=== PATIENT | male | born 1975 | race Caucasian/White ===

== ENCOUNTER 2023-01-06 14:21 | Emergency (ER) | payer OTHER ==
[~2023-01-06] VITALS: Ht 177.8 cm; Wt 90.7 kg
--- NOTE | 2023-01-06 14:42 | NUR ---
DENIS ALS TO ER BED 5
[2023-01-06 14:47] VITALS: BP 150/95
--- NOTE | 2023-01-06 14:48 | NUR ---
COVID swabs obtained, walked to lab.
[2023-01-06] MEDS ORDERED: LORazepam 1 MG TAB PO ONE (15:05)
[2023-01-06] MEDS ORDERED: NICOTINE TRANSD SYS 14 MG/24 HR PATCH TD SCH (15:05)
[2023-01-06] MEDS ORDERED: LORazepam 1 MG TAB ONE (15:06)
[2023-01-06] MEDS ORDERED: NICOTINE TRANSD SYS 14 MG/24 HR PATCH TD ONE (15:07)
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
--- NOTE | 2023-01-06 15:07 | NUR ---
Dr. Moore evaluating patient at bedside.
[2023-01-06] MEDS ORDERED: HALOPERIDOL IM 5 MG/ML VIAL IM ONE (15:15)
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
--- NOTE | 2023-01-06 15:57 | NUR ---
SISTER MAXX PUENTES [phone]
[2023-01-06 16:22] LABS: BASOPHILS % (AUTO) 0.3 % (0.0-2.0); EOSINOPHILS # (AUTO) 0.2 K/uL (0-0.4); EOSINOPHILS % (AUTO) 2.2 % (0.0-4.0); HEMATOCRIT 41.5 % (36-52); HEMOGLOBIN 14.6 g/dL (12.0-18.0); LYMPHOCYTES # (AUTO) 2.2 K/uL (2.0-11.5); LYMPHOCYTES % (AUTO) 30.3 % (20.5-51.1); MEAN CORPUSCULAR HEMOGLOBIN 32 pg (27-31); MEAN CORPUSCULAR HGB CONC 35 g/dL (33-37); MEAN CORPUSCULAR VOLUME 90.8 fL (80-94); MONOCYTES # (AUTO) 0.5 K/uL (0.8-1.0); MONOCYTES % (AUTO) 6.5 % (1.7-9.3); NEUTROPHILS # (AUTO) 4.5 K/uL (1.8-7.7); NEUTROPHILS % (AUTO) 60.7 % (42.2-75.2); PLATELET COUNT (AUTO) 223 K/uL (140-450); RED BLOOD CELL COUNT(AUTO) 4.57 MIL/uL (4.20-6.10); WHITE BLOOD COUNT (AUTO) 7.4 K/uL (4.8-10.8)
[2023-01-06 16:43] LABS: ALBUMIN 3.6 g/dL (3.4-5.0); ANION GAP 14.3 (8-16); ASPARTATE AMINOTRANSFERASE 54 U/L (15-37); CARBON DIOXIDE 24.5 mmol/L (21-32); CHLORIDE 103 mmol/L (98-107); CREATININE 0.9 mg/dL (0.6-1.3); GFR ARICAN-AMERICAN 116 mL/min (>90); GLUCOSE 121 mg/dL (74-106); POTASSIUM 3.8 mmol/L (3.5-5.1); SALICYLATE 3.2 mg/dL (2.8-20.0); SODIUM SERUM 138 mmol/L (136-145); TOTAL BILIRUBIN 0.4 mg/dL (0.0-1.0); UREA NITROGEN, BLOOD 12 mg/dL (7-18)
[2023-01-06 16:46] LABS: ACETAMINOPHEN < 0.5 ug/ml (10-30)
--- NOTE | 2023-01-06 18:09 | NUR ---
PT MEDICALLY CLEARED BY DR ALBARADO AT THIS TIME
--- NOTE | 2023-01-06 18:43 | NUR ---
Dr. Trivedi, psychiatrist, evaluating patient at bedside.
[2023-01-06 19:03] LABS: BARBITURATE, URINE NEGATIVE ng/ml (NEG <=200); BENZODIAZEPINE, URINE NEGATIVE ng/mL (NEG <=200); CANNABINOID, URINE NEGATIVE ng/mL (NEG <=50); COCAINE, URINE NEGATIVE ng/mL (NEG <=300); OPIATE, URINE NEGATIVE ng/mL (NEG <=2000); PHENCYCLIDINE SCREEN,URINE NEGATIVE ng/mL (NEG <=25)
--- NOTE | 2023-01-06 19:22 | NUR ---
Report given to SAMINA Ronquillo for transfer of care.
[2023-01-06 19:49] VITALS: BP 150/95
--- NOTE | 2023-01-06 19:49 | NUR ---
Patient discharged with v/s stable. Written and verbal after care instructions given and explained. Patient verbalized understanding. Ambulatory with steady gait. All questions addressed prior to discharge. Advised to follow up with PMD.
== END 2023-01-06 19:49 | disposition home or self-care (01) ==
LOC: MED 14:21
DX: F10.129 Alcohol abuse with intoxication, unspecified (principal); Z20.822 Contact with and (suspected) exposure to COVID-19; I10 Essential (primary) hypertension; F32.A Depression, unspecified; F90.9 Attention-deficit hyperactivity disorder, unspecified type; Y90.9 Presence of alcohol in blood, level not specified
CPT/HCPCS: 36415; 80053; 80305; 85025; 87426; 87635; 96372; 99283; C9803; G0480; G0482; J1630; U0005